=== PATIENT | female | born 1955 | race Caucasian/White ===

== ENCOUNTER → 2019-05-20 | Outpatient (CLI) | payer OTHER ==
--- NOTE | 2019-05-22 11:21 | MR ---
EXAMINATION TYPE: MR knee RT wo con DATE OF EXAM: 05/20/2019 COMPARISON: HISTORY: RT KNEE PAIN TECHNIQUE: Multiplanar, multisequence imaging of the knee is performed without IV contrast. FINDINGS: There is marrow edema within the patella with complete loss of cartilage along the lateral patellar facet compatible with grade IV chondromalacia. No free fragments noted. Soft tissue varices are noted. There is loss of the medial and lateral compartment of the joint space as well as the patellofemoral joint. No erosive changes. Findings are suggestive of osteoarthritis. There does appear to be loss of the focal area of cartilage involving the lateral tibial plateau measuring approximately 6 mm on cor onal image 19. Correlate for grade III chondromalacia. Likely post arthritic. The medial and lateral collateral ligaments have a normal appearance. The anterior cruciate and poste rior cruciate ligaments have a normal appearance There is abnormal grade 3 signal the posterior horn the medial meniscus compatible simple linear tear . Additionally, there is a 7 mm para meniscal cyst. This is a secondary finding of meniscal tear. Lat eral meniscus has a normal appearance. Patellar and quadriceps tendons intact. No sizable fluid collections within the suprapatellar bursa. IMPRESSION: 1. There is a 7 mm para meniscal cyst adjacent to the posterior horn the medial meniscus intrasubstan ce linear signal compatible with linear tear. 2. Osteoarthritis with no evidence of erosive change. Focal 6 mm cartilaginous loss along the lateral tibial plateau noted on axial image 19 correlate for chondromalacia. No free fragment. 3. Complete loss of cartilage along the lateral patellar facet with marrow edema in the patella likel y reactive. Findings compatible with grade IV chondromalacia.
== END | disposition home or self-care (01) ==
LOC: RADMRIMAIN 14:31
PROVIDERS: ATTEND Orthopaedic Surgery
DX: M17.11 Unilateral primary osteoarthritis, right knee (principal)